=== PATIENT | male | born 1990 | race Hispanic/Latino ===

== ENCOUNTER 2018-09-08 15:07 | Emergency (ER) | payer SELFPAY ==
[2018-09-08] MEDS ORDERED: MORPHINE 4 MG/ML SYR ONE (15:38)
[2018-09-08] MEDS ORDERED: ONDANSETRON 4 MG/2 ML VIAL ONE (15:39)
[2018-09-08] MEDS ORDERED: NA CHLORIDE 0.9% 1,000 ML ONE (15:39)
--- NOTE | 2018-09-08 16:07 | RAD REPORT ---
EXAM DESCRIPTION: RAD - Foot Right 2 View - 09/08/2018 3:58 pm CLINICAL HISTORY: Fall from scaffolding 3 forefeet, foot, ankle and leg pain COMPARISON: None. FINDINGS: No fracture, dislocation or periosteal reaction. No acute or destructive bone process. Min imal spurring at the Achilles attachment. Soft tissue swelling is present. No air or foreign body. IMPRESSION: Negative right foot examination.
--- NOTE | 2018-09-08 16:09 | RAD REPORT ---
EXAM DESCRIPTION: RAD - Ankle Right 2 View - 09/08/2018 3:57 pm CLINICAL HISTORY: Fall from scaffolding 3-4 feet, foot and ankle pain COMPARISON: None. FINDINGS: Transverse fracture of the distal fibula shaft is present. There is 1 full shaft width med ial displacement of the distal fracture fragment with 5 mm of overlap. Distal tibia fracture is not i dentified. There is widening of the medial margin of the ankle joint. Dome of the talus shows approxi mately 5 mm lateral displacement relative to the tibial plafond. No joint space narrowing. Significan t soft tissue swelling around the ankle joint. IMPRESSION: Transverse fracture distal fibula shaft with medial displacement 1 full shaft width and 5 mm of overlap. Right lateral displacement of the dome of the talus relative to the tibial plafond measured approxima tely 5 mm.
--- NOTE | 2018-09-08 16:10 | RAD REPORT ---
EXAM DESCRIPTION: RAD - Tib Fib Right - 09/08/2018 3:57 pm CLINICAL HISTORY: Fall from scaffolding 3-4 feet, leg, foot and ankle pain COMPARISON: None. FINDINGS: No fracture near the knee joint. No joint effusion identified. Transverse fracture of the distal fibula shaft is present with 1 full shaft width medial displacement and 5 mm of overlap. Signi ficant soft tissue swelling. Approximately 5 mm lateral displacement of the dome of the talus relativ e to the tibial plafond. Medial joint space at the ankle is widened. No foreign body in the soft tiss ues. IMPRESSION: Distal fibula fracture as detailed above and on the ankle report. Right lateral displacement of the dome of the talus relative to the tibial plafond of approximately 5 mm.
[2018-09-08] MEDS ORDERED: MORPHINE 2 MG/ML SYR ONE (16:49)
--- NOTE | 2018-09-08 17:24 | EDPHYS ---
Physician Documentation [facility] Name: Ranjit Ramírez Age: 27 yrs Sex: Male : 1990 Arrival Date: 09/08/2018 Time: 15:09 Bed 15 Private MD: ED Physician Denilson Osborn HPI: 09/08 15:24 This 27 yrs old Male presents to ER via EMS with complaints of Fall Injury. cp 15:25 Details of fall: The patient fell from a height, off scaffolding, approximately 4 feet. cp Onset: The symptoms/episode began/occurred just prior to arrival. Associated injuries: The patient sustained right lower extremity, decreased range of motion, deformity, painful injury. Historical: - Allergies: 15:21 No Known Allergies; hb - Home Meds: 15:21 None [Active]; hb - PMHx: 15:21 None; hb - PSHx: 15:21 None; hb - Immunization history: Last tetanus immunization: - up to date. - Social history:: Smoking status: Patient/guardian denies using tobacco. - Ebola Screening: : No symptoms or risks identified at this time. ROS: 15:26 Eyes: Negative for injury, pain, redness, and discharge. cp 15:26 Constitutional: Negative for body aches, chills, fever, poor PO intake. 15:26 ENT: Negative for drainage from ear(s), ear pain, sore throat, difficulty swallowing, difficulty handling secretions. 15:26 Cardiovascular: Negative for chest pain, palpitations. 15:26 Respiratory: Negative for cough, shortness of breath, wheezing. 15:26 Abdomen/GI: Negative for abdominal pain, vomiting, diarrhea, constipation. 15:26 MS/extremity: Positive for injury or acute deformity, decreased range of motion, pain, swelling, tenderness, of the right ankle, Negative for paresthesias. 15:26 All other systems are negative. Exam: 15:35 Constitutional: The patient appears in no acute distress, alert, awake, cp non-diaphoretic, non-toxic, well developed, well nourished. 15:35 Head/Face: Normocephalic, atraumatic. cp 15:35 Eyes: Periorbital structures: appear normal, Conjunctiva: normal, no exudate, no injection, Lids and lashes: appear normal, bilaterally. 15:35 ENT: External ear(s): are unremarkable, Nose: is normal, Mouth: Lips: moist, Oral mucosa: moist, Posterior pharynx: is normal, airway is patent. 15:35 Neck: ROM/movement: is normal, is supple, without pain, no range of motions limitations, no nuchal rigidity. 15:35 Chest/axilla: Inspection: normal, Palpation: is normal, no crepitus, no tenderness. 15:35 Cardiovascular: Rate: normal, Rhythm: regular, Pulses: Pulses are 2+ in right dorsalis pedis artery. 15:35 Respiratory: the patient does not display signs of respiratory distress, Respirations: normal, no use of accessory muscles, no retractions, no splinting, no tachypnea, labored breathing, is not present, Breath sounds: are clear throughout, no decreased breath sounds, no stridor, no wheezing. 15:35 Abdomen/GI: Inspection: abdomen appears normal, Palpation: abdomen is soft and non-tender, in all quadrants. 15:35 Back: pain, is absent, ROM is normal. 15:35 Musculoskeletal/extremity: Extremities: grossly normal except: noted in the right ankle: decreased ROM, deformity, pain, swelling, tenderness, Perfusion: the extremity is normally perfused throughout, Sensation intact. 15:35 Skin: intact w/o open wounds right lower extremity. Vital Signs: 15:13 BP 131 / 70; Pulse 88; Resp 16; Temp 98.3; Pulse Ox 100% on R/A; Weight 108.86 kg; hb Height 5 ft. 5 in. (165.10 cm); Pain 10/10; 16:00 BP 132 / 72; Pulse 84; Resp 16; Pulse Ox 99% on R/A; Pain 10/10; hb 17:00 BP 141 / 75; Pulse 83; Resp 15; Pulse Ox 100% on R/A; Pain 4/10; hb 18:00 BP 123 / 86; Pulse 94; Resp 15; Pulse Ox 100% on R/A; hb 15:13 Body Mass Index 39.94 (108.86 kg, 165.10 cm) hb [place] Coma Score: 15:13 Eye Response: spontaneous(4). Verbal Response: oriented(5). Motor Response: obeys hb commands(6). Total: 15. Trauma Score (Adult): 15:13 Eye Response: spontaneous(1); Verbal Response: oriented(1); Motor Response: obeys hb commands(2); Systolic BP: > 89 mm Hg(4); Respiratory Rate: 10 to 29 per min(4); [place] Score: 15; Trauma Score: 12 16:00 Eye Response: spontaneous(1); Verbal Response: oriented(1); Motor Response: obeys hb commands(2); Systolic BP: > 89 mm Hg(4); Respiratory Rate: 10 to 29 per min(4); [place] Score: 15; Trauma Score: 12 17:00 Eye Response: spontaneous(1); Verbal Response: oriented(1); Motor Response: obeys hb commands(2); Systolic BP: > 89 mm Hg(4); Respiratory Rate: 10 to 29 per min(4); [place] Score: 15; Trauma Score: 12 18:00 Eye Response: spontaneous(1); Verbal Response: oriented(1); Motor Response: obeys hb commands(2); Systolic BP: > 89 mm Hg(4); Respiratory Rate: 10 to 29 per min(4); [place] Score: 15; Trauma Score: 12 Procedures: 18:15 Splinting: Splint applied to right ankle using Orthoglass splint, posterior long leg cp and stirrup type. applied by tech. Examined by me, post splint application: neurovascular intact, Patient tolerated well. MDM: 15:16 Patient medically screened. cp 16:00 Differential diagnosis: fracture, open fracture, dislocation. cp 16:15 Physician consultation: David Alexander MD was called at 16:15, regarding consult, cp patient's condition, left message on voicemail. 16:40 Physician consultation: David Alexander MD was contacted at 16:42, will review xrays for cp further treatment options. 16:54 Physician consultation: David Alexander MD was contacted at 16:54, regarding consult, cp patient's condition, wants posterior leg and stirrup splint applied to ankle and will see patient in clinic. 17:22 Data reviewed: vital signs, nurses notes, radiologic studies, I have discussed the cp patient's presentation/case with the attending Emergency Department Physician; and as a result, I will discharge patient. 09/08 15:23 Order name: XRAY Tib Fib RIGHT; Complete Time: 16:13 cp 09/08 15:53 Order name: Ankle Right 2 View; Complete Time: 16:13 EDMS 09/08 15:53 Order name: Foot Right 2 View; Complete Time: 16:13 EDMS 09/08 15:23 Order name: IV; Complete Time: 15:31 cp 09/08 16:22 Order name: NPO; Complete Time: 16:44 cp 09/08 16:54 Order name: Splint - Long Leg: Posterior w/ Stirrup; Complete Time: 17:21 cp 09/08 16:54 Order name: Crutches; Complete Time: 17:21 cp Administered Medications: 15:31 Drug: NS 0.9% 1000 ml Route: IV; Rate: 1 bolus; Site: left antecubital; hb 16:30 Follow up: Response: No adverse reaction; IV Status: Completed infusion; IV Intake: hb 1000ml 15:31 Drug: morphine 2 mg Route: IVP; Site: left antecubital; hb 16:30 Follow up: Response: No adverse reaction; Pain is decreased hb 15:32 Drug: Zofran 4 mg Route: IVP; Site: left antecubital; hb 16:10 Follow up: Response: No adverse reaction hb 15:53 Drug: morphine 2 mg Route: IVP; Site: left antecubital; hb 16:22 Follow up: Response: No adverse reaction; Pain is decreased hb 16:45 Drug: morphine 2 mg Route: IVP; Site: left forearm; hb 17:15 Follow up: Response: No adverse reaction; Pain is decreased hb Disposition: 09/08/18 17:23 Discharged to Home. Impression: Displaced transverse fracture of shaft of right fibula - distal, Dislocation of right ankle joint. - Condition is Stable. - Discharge Instructions: Ankle Dislocation, Displaced Fibular Ankle Fracture Treated With Open Reduction, Adult. - Prescriptions for Ibuprofen 800 mg Oral Tablet - take 1 tablet by ORAL route every 8 hours As needed take with food; 30 tablet. Tylenol- Codeine #3 300-30 mg Oral Tablet - take 2 tablets by ORAL route every 6 hours As needed; 20 tablet. - Medication Reconciliation Form, Thank You Letter, Antibiotic Education, Prescription Opioid Use form. - Follow up: David Alexander MD; When: 09/11/2018; Reason: right ankle fracture and dislocation. - Problem is new. - Symptoms have improved. Addendum: 09/09/2018 19:31 Co-signature as Attending Physician, Denilson Osborn MD I agree with the assessment and k dr plan of care. Signatures: Dispatcher [employer] EDMS Denilson Osborn MD MD [facility] Rocco Boswell, PA PA cp Lalitha Denson, RN RN Corrections: (The following items were deleted from the chart) 09/08 15:52 15:23 Ankle Right 3 View+RAD.RAD.BRZ ordered. EDMS EDMS 15:52 15:23 Foot Right 3 View+RAD.RAD.BRZ ordered. EDMS EDMS 16:17 16:11 Splint - Long Leg: Posterior w/ Stirrup ordered. cp cp 18:19 17:23 09/08/2018 17:23 Discharged to Home. Impression: Displaced transverse fracture of hb shaft of right fibula - distal; Dislocation of right ankle joint. Condition is Stable. Forms are Medication Reconciliation Form, Thank You Letter, Antibiotic Education, Prescription Opioid Use. Follow up: David Alexander; When: 09/11/2018; Reason: right ankle fracture and dislocation. Problem is new. Symptoms have improved. cp
--- NOTE | 2018-09-08 17:24 | ER ---
Nurse's Notes [facility] Name: Ranjit Ramírez Age: 27 yrs Sex: Male : 1990 Arrival Date: 09/08/2018 Time: 15:09 Bed 15 Private MD: Diagnosis: Displaced transverse fracture of shaft of right fibula-distal;Dislocation of right ankle joint Presentation: 09/08 15:11 Presenting complaint: EMS states: Fell from scaffold 3-4 feet high, landed on right hb foot, rolled ankle, obvious deformity to right ankle. Splint applied, 20g LEFT AC, Fentanyl 50mcg IVP administered TECHNOLOGY COORDINATOR. Care prior to arrival: None. Mechanism of Injury: Fall in industrial area approximately 4 feet. Trauma event details: [facility], Injury occurred: in an industrial place of business Injury occurred: September 08, 2018. 15:11 Acuity: TICO 3 hb 15:11 Method Of Arrival: EMS hb 15:22 Transition of care: patient was not received from another setting of care. Onset of hb symptoms was September 08, 2018. Risk Assessment: Do you want to hurt yourself or someone else? Patient reports no desire to harm self or others. Initial Sepsis Screen: Does the patient meet any 2 criteria? No. Patient's initial sepsis screen is negative. Does the patient have a suspected source of infection? No. Patient's initial sepsis screen is negative. Trauma Activation: Not Applicable Physician: ED Physician; Name: ; Notified At: ; Arrived At: Physician: General Surgeon; Name: ; Notified At: ; Arrived At: Physician: Radiology; Name: ; Notified At: ; Arrived At: Physician: Respiratory; Name: ; Notified At: ; Arrived At: Physician: Lab; Name: ; Notified At: ; Arrived At: Historical: - Allergies: 15:21 No Known Allergies; hb - Home Meds: 15:21 None [Active]; hb - PMHx: 15:21 None; hb - PSHx: 15:21 None; hb - Immunization history: Last tetanus immunization: - up to date. - Social history:: Smoking status: Patient/guardian denies using tobacco. - Ebola Screening: : No symptoms or risks identified at this time. Screenin:19 Abuse screen: Denies threats or abuse. Denies injuries from another. Tuberculosis hb screening: No symptoms or risk factors identified. 15:21 Nutritional screening: No deficits noted. Fall Risk None identified. hb Primary Survey: 15:16 NO uncontrolled hemorrhage observed. A: The patient is alert. Airway: patent, No hb supplemental oxygen in use on arrival. Breathing/Chest: Respiratory pattern: regular, Respiratory effort: spontaneous, unlabored, Breath sounds: clear, bilaterally. Chest inspection: symmetrical rise and fall of the chest. Circulation: Pulses: palpable right dorsalis pedis artery. Skin color: pink, Skin temperature: warm, dry. Disability Alert. Exposure/Environment: There is no evidence of uncontrolled external bleeding. Obvious injury(ies) are noted at this time: bruising and swelling noted to right ankle A warming method has been applied: A warm blanket has been provided to the patient. 16:00 Reassessment Airway Airway Patent Breathing/Chest Respiratory pattern Regular hb Respiratory effort Spontaneous Unlabored Chest inspection Symmetrical Circulation Pulses Palpable Color [place] Disability Alert. 17:00 Reassessment Airway Airway Patent Breathing/Chest Respiratory pattern Regular hb Respiratory effort Spontaneous Unlabored Chest inspection Symmetrical Circulation Pulses Palpable Color [place] Disability Alert. 18:00 Reassessment Breathing/Chest Respiratory pattern Regular Respiratory effort Spontaneous hb Unlabored Chest inspection Symmetrical Circulation Pulses Palpable Color [place]. Secondary Survey: 15:16 HEENT: No deficits noted. Gastrointestinal: No deficits noted. : No deficits noted. hb Musculoskeletal: swelling and bruising noted to right ankle. Assessment: 15:20 General: Appears in no apparent distress. uncomfortable, Behavior is calm, cooperative. hb Pain: Pain currently is 10 out of 10 on a pain scale. Neuro: Level of Consciousness is awake, alert, obeys commands, Oriented to person, place, time, situation. Cardiovascular: Heart tones S1 S2 present Capillary refill < 3 seconds Patient's skin is warm and dry. Respiratory: Airway is patent Respiratory effort is even, unlabored, Respiratory pattern is regular, symmetrical, Breath sounds are clear bilaterally. GI: No signs and/or symptoms were reported involving the gastrointestinal system. : No signs and/or symptoms were reported regarding the genitourinary system. EENT: No signs and/or symptoms were reported regarding the EENT system. Derm: Skin is intact, is healthy with good turgor. Musculoskeletal: bruising and swelling noted to right ankle. 16:00 Reassessment: Patient appears in no apparent distress at this time. No changes from hb previously documented assessment. Patient and/or family updated on plan of care and expected duration. Pain level reassessed. Patient is alert, oriented x 3, equal unlabored respirations, skin warm/dry/pink. 16:48 Reassessment: Pt reports right ankle pain 10/10, DENILSON Valiente notified, repeat morphine hb administered as ordered. VSS. 17:30 Reassessment: Patient appears in no apparent distress at this time. Patient and/or hb family updated on plan of care and expected duration. Pain level reassessed. Patient is alert, oriented x 3, equal unlabored respirations, skin warm/dry/pink. 18:00 Reassessment: Splint checked by DENILSON Boswell Critical care time stopped, patient has hb stabilized. Vital Signs: 15:13 BP 131 / 70; Pulse 88; Resp 16; Temp 98.3; Pulse Ox 100% on R/A; Weight 108.86 kg; hb Height 5 ft. 5 in. (165.10 cm); Pain 10/10; 16:00 BP 132 / 72; Pulse 84; Resp 16; Pulse Ox 99% on R/A; Pain 10/10; hb 17:00 BP 141 / 75; Pulse 83; Resp 15; Pulse Ox 100% on R/A; Pain 4/10; hb 18:00 BP 123 / 86; Pulse 94; Resp 15; Pulse Ox 100% on R/A; hb 15:13 Body Mass Index 39.94 (108.86 kg, 165.10 cm) hb [place] Coma Score: 15:13 Eye Response: spontaneous(4). Verbal Response: oriented(5). Motor Response: obeys hb commands(6). Total: 15. Trauma Score (Adult): 15:13 Eye Response: spontaneous(1); Verbal Response: oriented(1); Motor Response: obeys hb commands(2); Systolic BP: > 89 mm Hg(4); Respiratory Rate: 10 to 29 per min(4); [place] Score: 15; Trauma Score: 12 16:00 Eye Response: spontaneous(1); Verbal Response: oriented(1); Motor Response: obeys hb commands(2); Systolic BP: > 89 mm Hg(4); Respiratory Rate: 10 to 29 per min(4); [place] Score: 15; Trauma Score: 12 17:00 Eye Response: spontaneous(1); Verbal Response: oriented(1); Motor Response: obeys hb commands(2); Systolic BP: > 89 mm Hg(4); Respiratory Rate: 10 to 29 per min(4); [place] Score: 15; Trauma Score: 12 18:00 Eye Response: spontaneous(1); Verbal Response: oriented(1); Motor Response: obeys hb commands(2); Systolic BP: > 89 mm Hg(4); Respiratory Rate: 10 to 29 per min(4); [place] Score: 15; Trauma Score: 12 ED Course: 15:09 Patient arrived in ED. hb 15:13 Triage completed. hb 15:15 Rocco Boswell PA is PHCP. cp 15:15 Denilson Osborn MD is Attending Physician. cp 15:19 Patient has correct armband on for positive identification. Bed in low position. Call hb light in reach. Side rails up X 1. 15:19 Patient maintains SpO2 saturation greater than 95% on room air. hb 15:21 Maintain EMS IV. Dressing intact. Good blood return noted. Site clean \T\ dry. Gauge \T\ hb site: 20G LEFT AC. 15:22 Arm band placed on. hb 15:23 Thermoregulation: warm blanket given to patient. hb 15:31 Lalitha Denson, RN is Primary Nurse. hb 15:53 XRAY Tib Fib RIGHT In Process Unspecified. EDMS 15:53 Ankle Right 2 View In Process Unspecified. EDMS 15:53 Foot Right 2 View In Process Unspecified. EDMS 15:53 X-ray completed. Portable x-ray completed in exam room. jr1 17:20 Crutch training done. Orthoglass splint: Posterior long leg splint applied on right ms leg. stirrup splint applied on right leg. 17:21 David Alexander MD is Referral Physician. cp 18:17 No provider procedures requiring assistance completed. IV discontinued, intact, hb bleeding controlled, No redness/swelling at site. Pressure dressing applied. Administered Medications: 15:31 Drug: NS 0.9% 1000 ml Route: IV; Rate: 1 bolus; Site: left antecubital; hb 16:30 Follow up: Response: No adverse reaction; IV Status: Completed infusion; IV Intake: hb 1000ml 15:31 Drug: morphine 2 mg Route: IVP; Site: left antecubital; hb 16:30 Follow up: Response: No adverse reaction; Pain is decreased hb 15:32 Drug: Zofran 4 mg Route: IVP; Site: left antecubital; hb 16:10 Follow up: Response: No adverse reaction hb 15:53 Drug: morphine 2 mg Route: IVP; Site: left antecubital; hb 16:22 Follow up: Response: No adverse reaction; Pain is decreased hb 16:45 Drug: morphine 2 mg Route: IVP; Site: left forearm; hb 17:15 Follow up: Response: No adverse reaction; Pain is decreased hb Intake: 15:13 PO: 0ml; Total: 0ml. hb 16:30 IV: 1000ml; Total: 1000ml. hb Output: 15:13 Urine: 0ml; Total: 0ml. hb Outcome: 17:23 Discharge ordered by MD. cp 18:17 Discharged to home ambulatory, with crutches, with friend. hb 18:17 Condition: stable 18:17 Discharge instructions given to patient, Instructed on discharge instructions, follow up and referral plans. medication usage, crutch walking, Demonstrated understanding of instructions, follow-up care, medications, crutch walking, splint care, Prescriptions given X 2. 18:18 Patient's length of stay in the Emergency Department was greater than 2 hours. awaiting hb transportationPatient's length of stay extended due to 18:19 Patient left the ED. hb Signatures: Dispatcher [employer] EDSubha Crandall Maria ms Page, Corey, PA PA cp Baxter, Heather, DARIUS RN hb
== END 2018-09-08 18:19 | disposition home or self-care (01) ==
LOC: ER 15:07
PROC: 2W3LX1Z Immobilization of Right Lower Extremity using Splint (ICD-10-PCS; principal; 2018-09-08)
DX: S82.421A Displaced transverse fracture of shaft of right fibula, initial encounter for closed fracture (principal); S93.04XA Dislocation of right ankle joint, initial encounter; W12.XXXA Fall on and from scaffolding, initial encounter
CPT/HCPCS: 96361; 96374; 96375; 99284; J2270; J2405; J7030

== ENCOUNTER 2023-08-21 00:06 | Emergency (ER) | payer SELFPAY ==
--- NOTE | 2023-08-21 02:05 | EDPHYS ---
Physician Documentation [facility] Name: Ranjit Ramírez Age: 32 yrs Sex: Male : 1990 Arrival Date: 08/21/2023 Time: 00:06 Bed IW1 Private MD: ED Physician Giuseppe Chou HPI: 08/20 01:31 This 32 yrs old Male presents to ER via Ambulatory with complaints of kb Headache, Pt stated they woke up with severe pain to back of head. Pt denies any injury to head.. 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 kb States he had gotten up to use the restroom and that is when the headache started. Tried to go back to sleep but the headache got worse when he laid down. States he had a similar headache 3 days ago that went away. Denies dizziness, headache, cough, congestion. . Historical: - Allergies: 00:28 No Known Allergies; lg3 - Home Meds: 00:28 None [Active]; lg3 - PMHx: 00:28 None; lg3 - PSHx: 00:28 right ankle; lg3 - Immunization history:: Adult Immunizations up to date. - Infectious Disease History:: Denies. - Social history:: Smoking status: Patient denies any tobacco usage or history of. Patient uses alcohol, only on a social basis. Patient/guardian denies using street drugs. ROS: 01:31 Constitutional: As per HPI kb Exam: 01:31 Constitutional: This is a well developed, well nourished patient who is awake, alert, kb and in no acute distress. Head/Face: Normocephalic, atraumatic. Eyes: Pupils equal round and reactive to light, extra-ocular motions intact. Lids and lashes normal. Conjunctiva and sclera are non-icteric and not injected. Cornea within normal limits. Periorbital areas with no swelling, redness, or edema. ENT: Moist Mucous membranes Cardiovascular: Regular rate Respiratory: Respirations even and unlabored. No increased work of breathing. Talking in full sentences Skin: Warm, dry with normal turgor. Normal color. MS/ Extremity: Pulses equal, no cyanosis. Neurovascular intact. Full, normal range of motion. Neuro: Awake and alert, GCS 15, oriented to person, place, time, and situation. Moves all extremities. Normal gait. Vital Signs: 00:25 BP 165 / 97; Pulse 91; Resp 15 S; Temp 98.3(TE); Pulse Ox 100% on R/A; Weight 99.79 kg lg3 (R); Height 5 ft. 5 in. (R); Pain 5/10; 02:44 BP 141 / 88; Pulse 87; Resp 16 S; Temp 98.1(TE); Pulse Ox 100% on R/A; Pain 3/10; lg3 00:25 Body Mass Index 36.61 (99.79 kg, 165.1 cm) lg3 00:25 Pain Scale: Adult lg3 02:44 Pain Scale: Adult lg3 John Coma Score: 01:33 Eye Response: spontaneous(4). Motor Response: obeys commands(6). Verbal Response: kb oriented(5). Total: 15. MDM: 00:33 Patient medically screened. kb 01:33 Differential diagnosis: migraine, sinusitis, ICH, tension headache. Data reviewed: kb vital signs, nurses notes. 02:04 Counseling: I had a detailed discussion with the patient and/or guardian regarding the kb historical points, exam findings, and any diagnostic results supporting the discharge/admit diagnosis, radiology results, the need for outpatient follow up, a family practitioner, to return to the emergency department if symptoms worsen or persist or if there are any questions or concerns that arise at home. 08/20 00:37 Order name: CT Head Brain wo Cont kb Administered Medications: 02:03 CANCELLED (Duplicate Order): [id number] mg PO once kb 02:04 CANCELLED (Duplicate Order): [id number] mg PO once kb 02:43 Drug: Ibuprofen PO 600 mg PO once Route: PO; lg3 02:45 Follow up: Response: No adverse reaction lg3 02:43 Drug: Acetaminophen PO 650 mg PO once Route: PO; lg3 02:45 Follow up: Response: No adverse reaction lg3 Disposition: 22:10 Co-signature as Attending Physician, Giuseppe Chou MD I agree with the assessment sp4 and plan of care. I reviewed the patient's care provided by the Advanced Practice Provider and agree with the diagnosis and treatment plan. Disposition Summary: 08/21/23 02:04 Discharge Ordered Notes: Location: Home kb Condition: Stable kb Diagnosis - Headache kb Followup: kb - With: Emergency Department - When: As needed - Reason: Worsening of condition Followup: kb - With: Private Physician - When: 2 - 3 days - Reason: Recheck today's complaints, Continuance of care, Re-evaluation by your physician Discharge Instructions: - Discharge Summary Sheet kb - General Headache Without Cause, [id number] kb Forms: - Medication Reconciliation Form kb - Thank You Letter kb - Antibiotic Education kb - Prescription Opioid Use kb - Patient Portal Instructions kb - Leadership Thank You Letter kb Signatures: Dispatcher [employer] EDMS Pamela Cutler, PAINTER HELPER-C PAINTER HELPER-Zoraida Coreas RN RN lg3 Giuseppe Chou MD MD sp4 Corrections: (The following items were deleted from the chart) 00:37 00:37 Head Brain Wo [id number].RAD.BRZ ordered. EDMS EDMS 02:03 02:03 Ibuprofen PO 800 mg PO once ordered. kb kb 02:04 01:31 Acetaminophen PO 1000 mg PO once ordered. kb kb
--- NOTE | 2023-08-21 02:05 | ER ---
Nurse's Notes [facility] Name: Ranjit Ramírez Age: 32 yrs Sex: Male : 1990 Arrival Date: 08/21/2023 Time: 00:06 Bed IW1 Private MD: Diagnosis: Headache Presentation: 08/20 00:25 Chief complaint: Patient states: new onset headache around 2300 to back of head. lg3 Coronavirus screen: Client denies travel out of the [place] in the last 14 days. At this time, the client does not indicate any symptoms associated with coronavirus-19. Ebola Screen: No symptoms or risks identified at this time. Initial Sepsis Screen: Does the patient meet any 2 criteria? No. Patient's initial sepsis screen is negative. Does the patient have a suspected source of infection? No. Patient's initial sepsis screen is negative. Risk Assessment: Do you want to hurt yourself or someone else? Patient reports no desire to harm self or others. Onset of symptoms was August 20, 2023 at 23:00. 00:25 Method Of Arrival: Ambulatory lg3 00:25 Acuity: TICO 4 lg3 Triage Assessment: 00:28 Headache History: Denies prior headaches. General: Appears in no apparent distress. lg3 comfortable, Behavior is calm, cooperative. Pain: Complains of pain in back of head Pain does not radiate. Pain currently is 5 out of 10 on a pain scale. Quality of pain is described as crushing, heavy, pressure, Pain began 1 hour ago. Also complains of no other associated symptoms. EENT: No deficits noted. No signs and/or symptoms were reported regarding the EENT system. Neuro: No deficits noted. Cunningham Agitation-Sedation Scale (RASS): 0 - Alert and Calm Level of Consciousness is awake, alert, obeys commands, Oriented to person, place, time, situation, Appropriate for age Reports headache. Cardiovascular: No deficits noted. Denies chest pain, shortness of breath, Capillary refill < 3 seconds Clubbing of nail beds is absent JVD is absent Patient's skin is warm and dry. Respiratory: No deficits noted. Airway is patent Respiratory effort is even, unlabored, Respiratory pattern is regular, symmetrical. GI: No deficits noted. No signs and/or symptoms were reported involving the gastrointestinal system. Abdomen is round non-distended. : No deficits noted. No signs and/or symptoms were reported regarding the genitourinary system. Derm: No deficits noted. No signs and/or symptoms reported regarding the dermatologic system. Skin is intact, is healthy with good turgor, Skin is dry, Skin is normal, Skin temperature is warm. Musculoskeletal: No deficits noted. No signs and/or symptoms reported regarding the musculoskeletal system. Circulation, motion, and sensation intact. Range of motion: intact in all extremities. Historical: - Allergies: 00:28 No Known Allergies; lg3 - Home Meds: 00:28 None [Active]; lg3 - PMHx: 00:28 None; lg3 - PSHx: 00:28 right ankle; lg3 - Immunization history:: Adult Immunizations up to date. - Infectious Disease History:: Denies. - Social history:: Smoking status: Patient denies any tobacco usage or history of. Patient uses alcohol, only on a social basis. Patient/guardian denies using street drugs. Screenin:31 [facility] ED Fall Risk Assessment (Adult) History of falling in the last 3 months, lg3 including since admission No falls in past 3 months (0 pts). Abuse screen: Denies threats or abuse. Denies injuries from another. Nutritional screening: No deficits noted. Tuberculosis screening: No symptoms or risk factors identified. Assessment: 00:30 General: see triage assessment. Pain: Complains of pain in back of head. lg3 02:43 Reassessment: Patient appears in no apparent distress at this time. No changes from lg3 previously documented assessment. Patient and/or family updated on plan of care and expected duration. Pain level reassessed. Patient is alert, oriented x 3, equal unlabored respirations, skin warm/dry/pink. Vital Signs: 00:25 BP 165 / 97; Pulse 91; Resp 15 S; Temp 98.3(TE); Pulse Ox 100% on R/A; Weight 99.79 kg lg3 (R); Height 5 ft. 5 in. (R); Pain 5/10; 02:44 BP 141 / 88; Pulse 87; Resp 16 S; Temp 98.1(TE); Pulse Ox 100% on R/A; Pain 3/10; lg3 00:25 Body Mass Index 36.61 (99.79 kg, 165.1 cm) lg3 00:25 Pain Scale: Adult lg3 02:44 Pain Scale: Adult lg3 John Coma Score: 01:33 Eye Response: spontaneous(4). Motor Response: obeys commands(6). Verbal Response: kb oriented(5). Total: 15. ED Course: 00:08 Patient arrived in ED. jj6 00:28 Triage completed. lg3 00:28 Arm band placed on right wrist. lg3 00:31 Patient taken to lobby. lg3 00:31 Patient has correct armband on for positive identification. lg3 00:43 Pamela Cutler FNP-C is PHCP. kb 00:43 Giuseppe Chou MD is Attending Physician. kb 01:24 CT Head Brain wo Cont In Process Unspecified. EDMS 02:44 No provider procedures requiring assistance completed. Patient did not have IV access lg3 during this emergency room visit. Administered Medications: 02:03 CANCELLED (Duplicate Order): [id number] mg PO once kb 02:04 CANCELLED (Duplicate Order): [id number] mg PO once kb 02:43 Drug: Ibuprofen PO 600 mg PO once Route: PO; lg3 02:45 Follow up: Response: No adverse reaction lg3 02:43 Drug: Acetaminophen PO 650 mg PO once Route: PO; lg3 02:45 Follow up: Response: No adverse reaction lg3 Medication: 00:31 VIS not applicable for this client. lg3 Outcome: 02:04 Discharge ordered by . kb 02:44 Discharged to home ambulatory, lg3 02:44 Condition: stable 02:44 Discharge instructions given to patient, Instructed on discharge instructions, follow up and referral plans. Demonstrated understanding of instructions, follow-up care, 02:45 Patient left the ED. lg3 Signatures: Dispatcher [employer] EDMS Pamela Cutler FNP-C FNP-Ckb Able, Lacie, RN RN lg3 Subha Stauffer jj6
[2023-08-21] MEDS ORDERED: IBUPROFEN 400 MG TAB ONE (02:40)
[2023-08-21] MEDS ORDERED: IBUPROFEN 200 MG TAB PO ONE (02:40)
[2023-08-21] MEDS ORDERED: ACETAMINOPHEN 325 MG TABLET ONE (02:40)
[2023-08-21 02:52] VITALS: BP 141/88; TEMP 98.1; O2SAT 100
--- NOTE | 2023-08-21 20:07 | RAD REPORT ---
EXAM DESCRIPTION: CT - Head Brain Wo Cont - 08/21/2023 6:53 am CLINICAL HISTORY: 32 years Male; HEADACHE; Bed Name: 2 TECHNIQUE: Noncontrast CT head. All CT scans at this facility use dose modulation, iterative reconstruction, and/or weight based dosi ng when appropriate to reduce radiation dose to as low as reasonably achievable. COMPARISON: None. FINDINGS: Parenchyma: No acute hemorrhage, large territorial infarction, or mass effect.. Ventricles and extra-axial spaces: Appropriate for age. Visualized paranasal sinuses: Retention cyst versus polyp in the right ethmoid sinus. Mastoid air cells: Clear. Bones: No acute focal abnormality. Additional comment: None. IMPRESSION: No acute intracranial findings. Electronically signed by: Salty Azul MD 08/21/2023 02:00 AM CDT Due to temporary technical issues with the PACS/Fluency reporting system, reports are being signed by the in house radiologists without review as a courtesy to insure prompt reporting. The interpreting radiologist is fully responsible for the content of the report.
== END 2023-08-21 02:45 | disposition home or self-care (01) ==
LOC: ER 00:06
DX: R51.9 Headache, unspecified (principal)
CPT/HCPCS: 70450; 99283